=== PATIENT | male | born 1995 | race Caucasian/White ===

== ENCOUNTER 2018-08-16 06:14 | Day surgery (SDC) | payer OTHER ==
--- NOTE | 2018-08-16 07:37 | Anesthesia Day of Surgery ---
Anesthesia Day of Surgery - Day of Surgery Patient Examined: Yes Patient H&P Reviewed: Yes Patient is NPO: Yes
[2018-08-16] MEDS ORDERED: NEOSPORIN GU IR ONE ×2 (07:38→10:28)
[2018-08-16] MEDS ORDERED: MARCAINE 0.25% INFILTRATI ONE ×2 (07:38→10:28)
--- NOTE | 2018-08-16 07:38 | Anesthesia Consultation ---
Anesthesia Consult and Med Hx Date of service: 08/16/18 - Airway Anesthetic Teeth Evaluation: Good ROM Head & Neck: Adequate Mental/Hyoid Distance: Adequate Mallampati Class: Class III Intubation Access Assessment: Probably Good - Pulmonary Exam CTA: Yes - Cardiac Exam Cardiac Exam: RRR - Pre-Operative Health Status ASA Pre-Surgery Classification: ASA2 Proposed Anesthetic Plan: General - Pre-Anesthesia Comment Pre-Anesthesia Comments: Hydrocele, undescended right testicle - Pulmonary Hx Smoking: Yes (IRREGULAR SMOKER) Hx Sleep Apnea: No (UMESH PRE SCREEN LOW RISK.) - Cardiovascular System Hx Hypertension: No - Other Systems Hx Cancer: No
[2018-08-16] MEDS ORDERED: XYLOCAINE 1% MPF 5 mL ONE (07:40)
[2018-08-16] MEDS ORDERED: DIPRIVAN 10 MG/ML IV ONE (07:47)
[2018-08-16] MEDS ORDERED: XYLOCAINE MPF 2% ONE (07:47)
[2018-08-16] MEDS ORDERED: SUBLIMAZE ONE (07:47)
[2018-08-16] MEDS ORDERED: DILAUDID IV PRN (07:53)
[2018-08-16] MEDS ORDERED: ZOFRAN IV PRN (07:53)
[2018-08-16] MEDS ORDERED: VERSED IV NR (08:00)
[2018-08-16] MEDS ORDERED: LACTATED RINGERS 1,000 ML IV SCH ×2 (08:00)
[2018-08-16] MEDS ORDERED: ANCEF/STERILE WATER 2 GM/20 ML 2 GM/20 ML SYRINGE IV NR (08:00)
[2018-08-16] MEDS ORDERED: LACTATED RINGERS 1,000 ML ONE (08:00)
[2018-08-16] MEDS ORDERED: NACL 0.9% IR ONE (08:47)
[2018-08-16] MEDS ORDERED: DECADRON ONE (08:59)
[2018-08-16] MEDS ORDERED: ZOFRAN ONE (08:59)
[2018-08-16] MEDS ORDERED: DILAUDID ONE (10:02)
--- NOTE | 2018-08-16 10:37 | Post Operative Note ---
Date of procedure: 08/16/18 Pre-op diagnosis: rih retractile testes Post-op diagnosis: same Findings: testes in abdomen Procedure: intra abd testes Anesthesia: GETA Surgeon: AUSTIN HUDDLESTON Estimated blood loss: minimal Pathology: list (sac) Specimen disposition: to lab Condition: stable Disposition: PACU
--- NOTE | 2018-08-16 10:40 | Discharge Summary ---
Short Stay Discharge Plan Activity: other (no straining ) Weight Bearing Status: Full Weight Bearing Diet: low fat Special Instructions: other (ice to incision ) Durable Medical Equipment Needed Upon Discharge: other (keep dry) Follow up with: PRIMARY CARE, [Primary Care Provider] - 7 Days AUSTIN HUDDLESTON MD [Staff Physician] - 7 Days
[2018-08-16] MEDS ORDERED: TORADOL ONE (10:42)
[2018-08-16] MEDS ORDERED: DEMEROL IV PRN (11:43)
[2018-08-16] MEDS ORDERED: ROBINUL ONE (12:16)
[2018-08-16] MEDS ORDERED: PROVENTIL IH ONE ×3 (12:26→16:00)
--- NOTE | 2018-08-16 12:42 | Operative Report ---
PREOPERATIVE DIAGNOSIS: Large right inguinal hernia with retractile testis which today is nonpalpable. POSTOPERATIVE DIAGNOSES: Large right inguinal hernia with retractile testis which today is nonpalpable, intra-abdominal testis, large hernia. PROCEDURES: Right inguinal hernia repair, right orchidopexy. SURGEON: Dr. Barboza, Dr. Kim, Dr. Garcia. ANESTHESIA: General. FINDINGS: This is a gentleman who presented with a huge hernia. We could feel the testis that was documented on ultrasound. Now it is not palpable. He now presents for treatment. DESCRIPTION OF PROCEDURE: The patient was brought to the operating room and placed on the operating table. Following induction of anesthesia, he was placed in supine position and prepped and draped in usual sterile fashion. An oblique incision was made over the inguinal canal and carried down to the external oblique aponeurosis. This was opened. Testis and cord was not easily identified. There was lots of scar tissue at the pubic tubercle. This was released. We found the sac eventually and after cutting through scar tissue, we opened up the sac, and there was a very big hole into the peritoneal cavity. We still did not see the testis. We opened the peritoneum more and the testis was flipped up on itself up in the abdominal cavity where we were able to pull it down. We released all the surrounding scar tissue in the lateral spermatic fascia to get more length. We then released the peritoneum over the cord as a pediatric hernia and doubly tied it with silk. The sac was then closed. With Dr. Garcia here, he elected to put a plug. We put a plug and secured it anterior and posterior to the cord. The patient tolerated the procedure well. There was no excess tension on the cord. The cord was tacked. The testicle was tacked to the subdartos area with 3 separate sutures. Two were 5-0 Prolene and one was 4-0 Vicryl. We did not make a subdartos pouch. The testis was within the scrotum, the upper scrotal pouch that was created. The patient tolerated the procedure well. Wound was copiously irrigated. We used about 8 mL of Marcaine. The external oblique aponeurosis was closed with 2-0 Vicryl, superficial fascia with 2-0 Vicryl, and skin with clips. The patient had minimal blood loss. The patient brought to recovery in stable condition. JOB# [id number] MARIBEL/ANNIE
--- NOTE | 2018-08-16 12:45 | XRay Report ---
AP CHEST: HISTORY: Low oxygenation AP view of the chest demonstrates a normal mediastinal and cardiac contour with clear lungs and normal bony and soft tissue structures. IMPRESSION: Unremarkable AP chest.
[2018-08-16 14:58] VITALS: BP 128/55
--- NOTE | 2018-08-16 15:51 | Operative Report ---
PREOPERATIVE DIAGNOSES: Right inguinal hernia and retractile testis. POSTOPERATIVE DIAGNOSES: Right inguinal hernia and retractile testis. PROCEDURE: Indirect right inguinal hernia repair with mesh. CO-SURGEONS: Doc Garcia MD and Ed Barboza MD ANESTHESIA: General. ESTIMATED BLOOD LOSS: Minimum. FINDINGS: The patient had a small indirect hernia sac that was associated with a retractile testis. There were no contents within the hernia sac. The floor of the inguinal canal was adequate. IMPLANT: Bard mesh plug. DRAINS: None. COMPLICATIONS: Stable, transferred to Recovery Room. INDICATIONS: This is a 22-year-old male who Dr. Barboza evaluated and decided on bringing to the operating room for right inguinal hernia and retractile testis. I was consulted to come help with the evaluation and management of the right inguinal hernia. I was unable to speak to the patient before the case as I was called at the time that the operation was already underway. OPERATIVE NOTE: Upon my arrival, Dr. Barboza had already opened up the right inguinal area and dissected down to where the hernia and inguinal contents were located. He was having difficulty identifying where the testis and cord structures were in relation to the hernia sac. He had already entered the hernia sac and was able to palpate back up into the peritoneal space. He asked that I scrub in to assist him. Together, we were able to identify the hernia sac. We identified where the testis was and the cord structures. We the cord structures and testis from the hernia sac as it was adhered to it. When we the hernia sac from the testis, we then did a high ligation using 3-0 silk stitch. Suture ligation was done and the excess sac was excised off. As a precaution, we placed another 0 silk ligature around the base. Dr. Barboza proceeded to fixate the testicle to the base of the scrotum. I then proceeded after that to evaluate the internal ring, which was moderate size. We were able to easily place a large mesh plug into that space. I closed the internal ring around the cord using 2 Ethibond sutures. On the lateral stitch, I incorporated the mesh with it to keep it in place. On the medial end, there was some space there as well, so we put one stitch, taking care not to constrict the cord. I was able to easily pass a hemostat between the cord and the internal ring. Dr. Barboza agreed. There was not excessive tension around the cord. As the floor appeared okay, we did not do anything with that. There was good hemostasis. Dr. Barboza felt comfortable at this point taking over the case again and closing the wound. I then scrubbed out of the case. JOB# [id number] SIRENA/ANNIE
== END 2018-08-16 15:25 | disposition home or self-care (01) ==
LOC: OR 06:14
PROVIDERS: ATTEND Urology
DX: K40.90 Unilateral inguinal hernia, without obstruction or gangrene, not specified as recurrent (principal); R09.02 Hypoxemia; F17.210 Nicotine dependence, cigarettes, uncomplicated
CPT/HCPCS: 49505; 71045; 88302; C1781; J1100; J1170; J1885; J2175; J2250; J2405; J2704; J3010; J7120